=== PATIENT | male | born 1980 | race Asian ===

== ENCOUNTER 2023-04-28 21:59 | Emergency (ER) | payer MEDICAID ==
[~2023-04-28] VITALS: Ht 177.8 cm; Wt 75.7 kg
[2023-04-28 22:32] VITALS: BP_SYST 132; PULSE 69; RESP 18; TEMP 97.5; O2SAT 100
[2023-04-29] MEDS ORDERED: LORazepam 1 MG TABLET PO ONE (00:45)
[2023-04-29 01:00] VITALS: BP_SYST 128; PULSE 70; RESP 18; TEMP 97.5; O2SAT 100
== END 2023-04-29 01:50 | disposition home or self-care (01) ==
LOC: SED 21:59
DX: F41.9 Anxiety disorder, unspecified (principal); R20.2 Paresthesia of skin; R07.9 Chest pain, unspecified; Z79.899 Other long term (current) drug therapy
CPT/HCPCS: 71045; 93005; 99283

== ENCOUNTER 2023-05-01 19:30 | Emergency (ER) | payer MEDICAID ==
[~2023-05-01] VITALS: Ht 177.8 cm; Wt 76.7 kg
[2023-05-01 19:47] VITALS: BP_SYST 131; PULSE 72; RESP 18; TEMP 97.8; O2SAT 97
[2023-05-01 20:48] LABS: BASOPHILS % (AUTO) 0.5 % (0.0-2.0); EOSINOPHILS # (AUTO) 0.1 K/uL (0.0-0.4); EOSINOPHILS % (AUTO) 0.7 % (0.0-4.0); HEMATOCRIT 40.8 % (36-54); HEMOGLOBIN 12.5 g/dL (14.0-18.0); LYMPHOCYTES # (AUTO) 2.4 K/uL (1.0-5.5); LYMPHOCYTES % (AUTO) 30.8 % (20.5-51.5); MEAN CORPUSCULAR HEMOGLOBIN 19 pg (27-31); MEAN CORPUSCULAR HGB CONC 31 % (32-36); MEAN CORPUSCULAR VOLUME 63 fL (79.0-98.0); MONOCYTES # (AUTO) 0.9 K/uL (0.0-1.0); MONOCYTES % (AUTO) 11.6 % (1.7-9.3); NEUTROPHILS # (AUTO) 4.4 K/uL (1.8-7.7); NEUTROPHILS % (AUTO) 56.4 % (40.0-70.0); PLATELET COUNT (AUTO) 240 K/uL (130-430); RED BLOOD CELL COUNT(AUTO) 6.53 MIL/uL (4.2-6.2); RED CELL DISTRIBUTION WIDTH 17.1 % (9.0-15.0); WHITE BLOOD COUNT (AUTO) 7.8 K/uL (4.8-10.8)
[2023-05-01 21:08] LABS: ALANINE AMINOTRANSFERASE 20 U/L (12-78); ANION GAP 7 (5-15); ASPARTATE AMINOTRANSFERASE 18 U/L (10-37); CALCIUM 9.2 mg/dL (8.4-11.0); CARBON DIOXIDE 28 mmol/L (23-29); CHLORIDE 101 mmol/L (98-107); CREATININE 1.07 mg/dL (0.55-1.30); GFR AFRICAN AMERICAN 96 mL/min (>90); GLUCOSE 96 mg/dL (74-106); SODIUM SERUM 136 mmol/L (136-145); TOTAL BILIRUBIN 0.6 mg/dL (0.0-1.0); TOTAL PROTEIN, SERUM 7.4 g/dL (6.4-8.3); UREA NITROGEN, BLOOD 8 mg/dL (8-21)
[2023-05-01 21:17] LABS: ALBUMIN 4.3 g/dL (3.4-4.8); GFR NON AFRICAN-AMERICAN 79 mL/min (>90)
[2023-05-01 21:50] VITALS: BP_SYST 131; PULSE 72; RESP 18; TEMP 97.8; O2SAT 97
[2023-05-01 22:04] LABS: ANISOCYTOSIS 1+; HYPOCHROMASIA 1+; OVALOCYTES FEW; TARGET CELLS FEW; TEAR DROP CELLS FEW
== END 2023-05-01 21:50 | disposition home or self-care (01) ==
LOC: SED 19:30
DX: R07.9 Chest pain, unspecified (principal); M54.50 Low back pain, unspecified; F41.9 Anxiety disorder, unspecified; Z79.899 Other long term (current) drug therapy
CPT/HCPCS: 36415; 71045; 80053; 84484; 85025; 93005; 99285